=== PATIENT | female | born 1960 | race Caucasian/White ===

== ENCOUNTER 2023-06-09 20:51 | Emergency (ER) | payer MEDICARE, BC, SELFPAY ==
[2023-06-09 20:57] VITALS: BP 107/60
[2023-06-09] MEDS: REGLAN 10 MG IV (22:02)
[2023-06-09] MEDS: TORADOL 15 MG IV (22:02)
[2023-06-09] MEDS: NSS 1000 IV (22:03)
[2023-06-09] MEDS: REGLAN 10 MG PO (23:02)
--- NOTE | 2023-06-09 23:04 | ED.GENMED ---
History of Present Illness
General
Chief Complaint: Abdominal Symptoms
Source: patient
Exam Limitations: none
Time Seen by Provider: 06/09/23 21:43
Nursing documentation reviewed up to this point in time: agreed with
Travel History
Have you had any contact with someone who has COVID-19?: No
Do you have any symptoms of coronavirus? Fever > 100 degrees, chills, cough, shortness of breath, sore throat, loss of taste or smell, muscle aches, or headache?: No
History of Present Illness
History of Present Illness:
Patient to ED with cmplaint of fever, body aches, n/v. Seen at another ED ([facility] tested pos for influenza. SHe was given rx for zofran and tamiflu and discharged home. To ED tonight because she is not feeling any better. States zofran is
not helping. Brought to ED by son for eval.
Past History
Past History
ED Past Medical History: None
ED Past Surgical History: Appendectomy
Social History
Tobacco: Non-smoker
Alcohol: None
Personal:
Living: alone
Employment: Employed
Family History
Family History: Negative Diabetes
Review of Systems
Review of Systems
Allergies reviewed?: Yes
All Other Systems: ROS reviewed and negative except as documented in HPI and ROS
Constitutional: Reports fever and fatigue
EENT: Reports no symptoms
Respiratory: Reports cough
Cardiac: Reports no symptoms
ABD/GI: Reports nausea and vomiting
: Reports no symptoms
Musculoskeletal: Reports no symptoms
Skin: Reports no symptoms
Neurological: Reports headache and weakness
Psychiatric: Reports no symptoms
Phy Exam
General Physical Exam
General Presentation: well appearing
General age: appears stated age
General Skin: warm and dry
General Habitus: normal
General Mental: alert
Cardiovascular Exam
Cardiovascular Exam: regular rate/rhythm
Pulmonary Exam
Pulmonary Exam: lungs clear and no respiratory distress
Gastrointestinal Exam
Gastrointestinal Exam: non tender and soft
Neurological Exam
Neurological Exam: alert, oriented x3, no motor deficits, no sensory deficits and speech normal
Musculoskeletal Exam
Musculoskeletal Exam: full ROM and neuro vasc intact
Skin Exam
Skin Exam: normal color, warm/dry and no rash
Psychiatric Exam
Psychiatric Exam: normal mood/affect
Course
Orders/Labs/Results
Orders:
Orders
06/09/23 21:48
0.9% Sodium Chloride 1000 ml [Nss] 1,000 ml IV BOLUS
Ketorolac [Toradol] 15 mg IV NOW STA
06/09/23 21:49
Metoclopramide [Reglan] 10 mg IV NOW STA
06/09/23 22:57
Metoclopramide [Reglan] 10 mg PO NOW STA
Vital Signs
Initial and Last Documented VS:
Initial Vital Signs
Temp Pulse Resp BP Pulse Ox
98.4 F 86 18 107/60 96
06/09/23 20:57 06/09/23 20:57 06/09/23 20:57 06/09/23 20:57 06/09/23 20:57
Last Documented Vital Signs
Temp Pulse Resp BP Pulse Ox
98.4 F 86 18 107/60 96
06/09/23 20:57 06/09/23 20:57 06/09/23 20:57 06/09/23 20:57 06/09/23 20:57
*Critical Care Note
Total Time (30-74mins, 75-104mins- exclusive of procedures): Not Applicable
Update Note
Update Note:
Improved iwth IVF, reglan. Will discharge home, encourage increased fluid, follow up with PCP.
ED Attending Note
-
Portions of this chart may have been created with voice recognition software.� Occasional wrong word or��sound alike� substitutions may have occurred due to the inherent limitations of voice recognition software.
Discharge Plan
Departure
Patient Disposition: Home (Routine Discharge)
Date of Disposition: 06/09/23
Time of Disposition: 22:58
Patient with high blood pressure during this ER visit?: No
Condition: Good
Covid-19: Not Applicable
Discharge Problem:
Influenza
Instructions: Clear Liquid Diet, Dehydration, Adult (DC), Flu, Adult (DC)
Prescriptions:
New
metoclopramide HCl [Reglan] 10 mg tablet
10 mg PO Q8HPRN PRN (Reason: nausea and vomiting) Qty: 9 0RF
No Action
amoxicillin-pot clavulanate 1 TABLET tablet
1 tab PO Q12 Qty: 20 0RF
ondansetron 4 MG tablet,disintegrating
4 mg PO TIDPRN PRN (Reason: vomiting) Qty: 10 1RF
Activity Restrictions/Additional Instructions:
Follow up with your family doctor on Sunday.
Interventions
Interventions:
ED- Fall Risk Assessment Last Done: 06/09/23 21:43
BG-Lhvsbi-Nymsopavwb Assessment Last Done: 06/09/23 22:06
Discharge Date and Time
Discharge Date/Time: 06/09/23 23:08
== END 2023-06-09 23:08 | disposition home or self-care (01) ==
LOC: EMR 20:51
PROVIDERS: EMERGENCY PHYSICIAN Emergency Medicine; FAMILY PHYSICIAN Family Medicine
DX: J11.1 Influenza due to unidentified influenza virus with other respiratory manifestations (principal); R11.2 Nausea with vomiting, unspecified; R51.9 Headache, unspecified; R53.1 Weakness; M19.90 Unspecified osteoarthritis, unspecified site; Z88.5 Allergy status to narcotic agent; Z88.2 Allergy status to sulfonamides
CPT/HCPCS: 99284; 96374; 96375; 96361

== ENCOUNTER 2023-06-11 10:03 | Emergency (ER) | payer MEDICARE, BC, SELFPAY ==
[2023-06-11 10:06] VITALS: BP 121/69
--- NOTE | 2023-06-11 10:55 | ED.GENMED ---
History of Present Illness
General
Chief Complaint: Abdominal Symptoms
Time Seen by Provider: 06/11/23 10:40
Travel History
Have you had any contact with someone who has COVID-19?: No
Do you have any symptoms of coronavirus? Fever > 100 degrees, chills, cough, shortness of breath, sore throat, loss of taste or smell, muscle aches, or headache?: Yes
Symptoms:: positive for flu.
History of Present Illness
History of Present Illness:
63-year-old female presents the emergency department for intractable nausea. She developed fevers, body aches, and chills on Sunday, gradually worsened. Was seen on the day of illness at a hospital in [place] where she was diagnosed with
influenza. Was seen here 2 days ago and given IV fluids and sent a prescription for Reglan. She was unable to fill the prescription as her pharmacy was out of stock. She is also trying to take Tamiflu but is having difficulty due to nausea.
Denies any vomiting or diarrhea. No shortness of breath at rest
Past History
Past History
ED Past Medical History: None
ED Past Surgical History: Appendectomy
Social History
Tobacco: Non-smoker
Alcohol: None
Personal:
Living: alone
Employment: Employed
Family History
Family History: Negative Diabetes
Review of Systems
Review of Systems
Allergies reviewed?: Yes
All Other Systems: ROS reviewed and negative except as documented in HPI and ROS
Phy Exam
Physical Exam
Physical Exam:
GEN: Well appearing, NAD, WDWN
HEENT: Oral mucosa moist, no scleral icterus
Cardiac: Regular rate
Lung: No respiratory distress, no tachypnea, clear to auscultation bilaterally
MSK: No gross deformity or injuries
Skin: Good color, no pallor or jaundice, no rashes
Neuro: AO x3, moves all extremities freely
Psych: Calm, cooperative
Course
Orders/Labs/Results
Orders:
Orders
06/11/23 10:53
Metoclopramide [Reglan] 10 mg PO NOW STA
Vital Signs
Initial and Last Documented VS:
Initial Vital Signs
Temp Pulse Resp BP Pulse Ox
100.4 F H 74 18 121/69 95
06/11/23 10:06 06/11/23 10:06 06/11/23 10:06 06/11/23 10:06 06/11/23 10:06
Last Documented Vital Signs
Temp Pulse Resp BP Pulse Ox
100.4 F H 81 16 122/89 97
06/11/23 10:06 06/11/23 12:01 06/11/23 12:01 06/11/23 12:01 06/11/23 12:01
MDM/Problems Addressed
MDM/Problems Addressed:
Patient is well-appearing with normal vitals other than the fever, tolerating p.o. after single dose of metoclopramide in the ER. Encouraged her to discontinue Tamiflu as she really has no risk factors for antiviral use and this may be provoking
more nausea. Prescription sent to pharmacy locally that is confirmed to have metoclopramide in stock.
*Critical Care Note
Total Time (30-74mins, 75-104mins- exclusive of procedures): Not Applicable
ED Attending Note
-
Portions of this chart may have been created with voice recognition software.� Occasional wrong word or��sound alike� substitutions may have occurred due to the inherent limitations of voice recognition software.
Discharge Plan
Departure
Patient Disposition: Home (Routine Discharge)
Date of Disposition: 06/11/23
Time of Disposition: 11:58
Patient with high blood pressure during this ER visit?: No
Discharge Problem:
Influenza
Instructions: Flu, Adult (DC)
Prescriptions:
New
metoclopramide HCl [Reglan] 10 mg tablet
10 mg PO Q8HPRN PRN (Reason: nausea and vomiting) Qty: 9 0RF
No Action
amoxicillin-pot clavulanate 1 TABLET tablet
1 tab PO Q12 Qty: 20 0RF
ondansetron 4 MG tablet,disintegrating
4 mg PO TIDPRN PRN (Reason: vomiting) Qty: 10 1RF
metoclopramide HCl [Reglan] 10 mg tablet
10 mg PO Q8HPRN PRN (Reason: nausea and vomiting) Qty: 9 0RF
Referrals:
Mandie Lynch MD [Family Provider] -
Interventions
Interventions:
*Risk Screen - Suicide Last Done: 06/11/23 10:06
*General Assessment Last Done: 06/11/23 10:06
*Neglect/Abuse Screening Last Done: 06/11/23 10:06
ED- Fall Risk Assessment Last Done: 06/11/23 12:04
*ED COVID-19 Vaccine History Last Done: 06/11/23 10:06
*Nursing Disposition Last Done: 06/11/23 12:04
DQ-Gieldv-Ibjvbcwohe Assessment Last Done: 06/11/23 10:47
Discharge Date and Time
Discharge Date/Time: 06/11/23 12:00
[2023-06-11] MEDS: REGLAN 10 MG PO (10:59)
[2023-06-11 12:01] VITALS: BP 122/89
== END 2023-06-11 12:00 | disposition home or self-care (01) ==
LOC: EMR 10:03
PROVIDERS: EMERGENCY PHYSICIAN Emergency Medicine; FAMILY PHYSICIAN Family Medicine
DX: J11.1 Influenza due to unidentified influenza virus with other respiratory manifestations (principal)
CPT/HCPCS: 99283

== ENCOUNTER 2023-10-07 09:44 | Emergency (ER) | payer MEDICARE, BC, SELFPAY ==
[2023-10-07 09:47] VITALS: BP 130/82
--- NOTE | 2023-10-07 10:46 | ED.SKININJ ---
HPI-Injury
General
Chief Complaint: Bite
Time Seen by Provider: 10/07/23 10:22
Travel History
Have you had any contact with someone who has COVID-19?: No
Do you have any symptoms of coronavirus? Fever > 100 degrees, chills, cough, shortness of breath, sore throat, loss of taste or smell, muscle aches, or headache?: No
History of Present Illness-Injury
Initial Injury comments:
63-year-old female presents to the emergency department for evaluation of multiple bite wounds to the right foot sustained from her cat. The cat is up-to-date on rabies vaccinations and is an indoor cat only. Last tetanus is unknown however
patient explicitly declines tetanus update today
Past History
Past History
ED Past Medical History: None
ED Past Surgical History: Appendectomy
Social History
Tobacco: Non-smoker
Alcohol: None
Personal:
Living: alone
Employment: Employed
Family History
Family History: Negative Diabetes
Review of Systems
Review of Systems
Allergies reviewed?: Yes
All Other Systems: ROS reviewed and negative except as documented in HPI and ROS
Phy Exam
Physical Exam
Physical Exam:
GEN: Well appearing, NAD, WDWN
HEENT: Oral mucosa moist, no scleral icterus
Cardiac: Regular rate
Lung: No respiratory distress, no tachypnea
MSK: No gross deformity or injuries
Skin: Good color, no pallor or jaundice, no rashes. Numerous superficial abrasions/lacerations to the dorsum of the right foot
Neuro: AO x3, moves all extremities freely
Psych: Calm, cooperative
Course
Vital Signs
Initial and Last Documented VS:
Initial Vital Signs
Temp Pulse Resp BP Pulse Ox
98.3 F 66 16 130/82 99
10/07/23 09:47 10/07/23 09:47 10/07/23 09:47 10/07/23 09:47 10/07/23 09:47
Last Documented Vital Signs
Temp Pulse Resp BP Pulse Ox
98.3 F 66 16 130/82 99
10/07/23 09:47 10/07/23 09:47 10/07/23 09:47 10/07/23 09:47 10/07/23 09:47
MDM/Problems Addressed
MDM/Problems Addressed:
No indication for primary closure of any of the bite wounds. Will treat empirically with Augmentin, wounds irrigated copiously at the bedside. Patient declines tetanus update today.
*Critical Care Note
Total Time (30-74mins, 75-104mins- exclusive of procedures): Not Applicable
ED Attending Note
-
Portions of this chart may have been created with voice recognition software.� Occasional wrong word or��sound alike� substitutions may have occurred due to the inherent limitations of voice recognition software.
Discharge Plan
Departure
Patient Disposition: Home (Routine Discharge)
Date of Disposition: 10/07/23
Time of Disposition: 10:46
Patient with high blood pressure during this ER visit?: No
Discharge Problem:
Cat bite of right foot
Instructions: Animal Bites (DC)
Prescriptions:
New
amoxicillin-pot clavulanate 875-125 mg tablet
1 tab PO BID Qty: 10 0RF
No Action
amoxicillin-pot clavulanate 1 TABLET tablet
1 tab PO Q12 Qty: 20 0RF
ondansetron 4 MG tablet,disintegrating
4 mg PO TIDPRN PRN (Reason: vomiting) Qty: 10 1RF
metoclopramide HCl [Reglan] 10 mg tablet
10 mg PO Q8HPRN PRN (Reason: nausea and vomiting) Qty: 9 0RF
metoclopramide HCl [Reglan] 10 mg tablet
10 mg PO Q8HPRN PRN (Reason: nausea and vomiting) Qty: 9 0RF
Referrals:
Mandie Lynch MD [Family Provider] -
Activity Restrictions/Additional Instructions:
Keep the foot elevated and ice often to reduce swelling
Wash daily with soap and water
Return to the ER if you develop redness or fever despite antibiotics
Discharge Date and Time
Print Language: NEPALI
== END 2023-10-07 10:50 | disposition home or self-care (01) ==
LOC: EMR 09:44
PROVIDERS: EMERGENCY PHYSICIAN Emergency Medicine; FAMILY PHYSICIAN Family Medicine
DX: S91.311A Laceration without foreign body, right foot, initial encounter (principal); W55.01XA Bitten by cat, initial encounter; Z88.5 Allergy status to narcotic agent; Z88.2 Allergy status to sulfonamides
CPT/HCPCS: 99283